=== PATIENT | female | born 1990 | race Caucasian/White ===

== ENCOUNTER 2018-11-13 22:27 | Emergency (ER) | payer OTHER ==
[2018-11-13] MEDS ORDERED: Ondansetron PF 4 MG/2 ML Vial ONE (23:36)
[2018-11-14 00:02] LABS: Bacteria/HPF 1+ HPF (None Seen); Bilirubin Negative (Negative); Blood, Urine Negative (Negative); Clarity Turbid (Clear); Glucose, Urine (Dipstick) Normal (Negative); Leukocyte Negative Leu/uL (Negative); Nitrite Negative (Negative); Protein, Urine (Dipstick) 50 mg/dL (Neg-Trace); RBC/HPF None Seen HPF (0-3); WBC/HPF 0-3 HPF (0-3)
[2018-11-14 00:10] LABS: #Eosinphils 0.2 thou/uL (0.0-0.7); #Lymphocytes 2.4 thou/uL (1.20-3.40); #Monocytes 0.9 thou/uL (0.11-0.59); #Neutrophils 7.7 thou/uL (1.40-6.50); %Basophils 0.3 % (0.0-1.0); %Eosinophils 1.6 % (0.0-10.0); %Lymphocytes 21.8 % (21.0-51.0); %Monocytes 7.6 % (0.0-10.0); %Neutrophils 68.8 % (42.0-75.0); Hemoglobin 13.7 g/dL (12.0-16.0); Mean Corpuscular Hemoglobin 27.8 pg (27.0-31.0); Mean Corpuscular Volume 81.9 fL (78.0-98.0); Mean Platelet Volume 7.3 fL (7.4-10.4); Platelet Count 278 thou/uL (130-400); RBC Distribution Width 13.2 % (11.5-14.5); Red Blood Cell (RBC) Count 4.92 mill/uL (4.20-5.40); White Blood Cell (WBC) Count 11.2 thou/uL (4.8-10.8)
[2018-11-14 00:12] LABS: ALT (SGPT) 31 U/L (8-55); AST (SGOT) 40 U/L (5-34); Albumin 4.3 g/dL (3.5-5.0); Alkaline Phosphatase 61 U/L (40-150); Anion Gap 16 mmol/L (10-20); BUN (Urea Nitrogen) 12 mg/dL (7.0-18.7); Bilirubin, Total 0.6 mg/dL (0.2-1.2); Calc. Creatinine Clearance 0 mL/min (70-130); Calcium 9.1 mg/dL (7.8-10.44); Carbon Dioxide 19 mmol/L (22-29); Chloride 103 mmol/L (98-107); Estimated GFR-MDRD Greater than 90; Globulin 2.4 g/dL (2.4-3.5); Glucose 85 mg/dL (70-105); Potassium 3.6 mmol/L (3.5-5.1); Protein, Total 6.7 g/dL (6.0-8.3); Sodium 134 mmol/L (136-145)
== END 2018-11-14 01:03 | disposition home or self-care (01) ==
LOC: ERS 22:27
DX: O21.9 Vomiting of pregnancy, unspecified (principal); Z3A.01 Less than 8 weeks gestation of pregnancy
CPT/HCPCS: 80053; 81003; 81015; 85025; 96361; 96374; J2405

== ENCOUNTER 2018-11-23 19:15 | Emergency (ER) | payer OTHER ==
[2018-11-23] MEDS ORDERED: Ondansetron ODT 4 MG TAB ONE (19:53)
[2018-11-23 20:11] LABS: Bilirubin Large (Negative); Blood, Urine Moderate (Negative); Glucose, Urine (Dipstick) Negative (Negative); Leukocyte Negative (Negative); Nitrite Negative (Negative); Protein, Urine (Dipstick) 100 mg/dL (Neg-Trace)
[2018-11-23 20:11] LABS: #Eosinphils 0.1 thou/uL (0.0-0.7); #Lymphocytes 1.8 thou/uL (1.20-3.40); #Monocytes 0.8 thou/uL (0.11-0.59); #Neutrophils 11.8 thou/uL (1.40-6.50); %Basophils 0.3 % (0.0-1.0); %Eosinophils 0.6 % (0.0-10.0); %Lymphocytes 12.4 % (21.0-51.0); %Monocytes 5.4 % (0.0-10.0); %Neutrophils 81.4 % (42.0-75.0); Mean Corpuscular HGB CONC 32.1 g/dL (32.0-36.0); Mean Corpuscular Hemoglobin 26.6 pg (27.0-31.0); Mean Corpuscular Volume 82.8 fL (78.0-98.0); Mean Platelet Volume 6.7 fL (7.4-10.4); Platelet Count 334 thou/uL (130-400); RBC Distribution Width 13.5 % (11.5-14.5); Red Blood Cell (RBC) Count 5.63 mill/uL (4.20-5.40); White Blood Cell (WBC) Count 14.4 thou/uL (4.8-10.8)
[2018-11-23 20:15] LABS: Clarity Hazy (Clear)
[2018-11-23 20:18] LABS: RBC/HPF 0-3 HPF (0-3)
[2018-11-23 20:19] LABS: Bacteria/HPF 2+ HPF (None Seen)
[2018-11-23 20:20] LABS: Mucous/LPF 2+ LPF (<2+)
[2018-11-23 20:32] LABS: ALT (SGPT) 82 U/L (8-55); AST (SGOT) 51 U/L (5-34); Alkaline Phosphatase 73 U/L (40-150); Anion Gap 16 mmol/L (10-20); BUN (Urea Nitrogen) 12 mg/dL (7.0-18.7); Bilirubin, Total 0.8 mg/dL (0.2-1.2); Calc. Creatinine Clearance 0 mL/min (70-130); Calcium 10.2 mg/dL (7.8-10.44); Carbon Dioxide 22 mmol/L (22-29); Chloride 102 mmol/L (98-107); Estimated GFR-MDRD Greater than 90; Globulin 2.6 g/dL (2.4-3.5); Glucose 90 mg/dL (70-105); Potassium 3.9 mmol/L (3.5-5.1); Protein, Total 7.6 g/dL (6.0-8.3); Sodium 136 mmol/L (136-145)
[2018-11-23] MEDS ORDERED: Ondansetron PF 4 MG/2 ML Vial ONE (21:51)
== END 2018-11-23 23:33 | disposition home or self-care (01) ==
LOC: ERS 19:15
DX: O21.0 Mild hyperemesis gravidarum (principal); Z3A.01 Less than 8 weeks gestation of pregnancy; Z79.899 Other long term (current) drug therapy
CPT/HCPCS: 36415; 80053; 81003; 81015; 85025; 96361; 96374; J2405; Q0162

== ENCOUNTER 2018-11-26 15:02 | Inpatient (IN) | payer OTHER ==
[2018-11-26 16:47] LABS: #Basophils 0.1 thou/uL (0.0-0.2); #Lymphocytes 1.4 thou/uL (1.20-3.40); #Monocytes 0.7 thou/uL (0.11-0.59); #Neutrophils 10.5 thou/uL (1.40-6.50); %Basophils 0.5 % (0.0-1.0); %Eosinophils 0.4 % (0.0-10.0); %Lymphocytes 11.2 % (21.0-51.0); %Monocytes 5.8 % (0.0-10.0); %Neutrophils 82.2 % (42.0-75.0); Hemoglobin 14.7 g/dL (12.0-16.0); Mean Corpuscular HGB CONC 33.4 g/dL (32.0-36.0); Mean Corpuscular Hemoglobin 27.2 pg (27.0-31.0); Mean Corpuscular Volume 81.4 fL (78.0-98.0); Mean Platelet Volume 6.9 fL (7.4-10.4); Platelet Count 286 thou/uL (130-400); RBC Distribution Width 13.4 % (11.5-14.5); Red Blood Cell (RBC) Count 5.42 mill/uL (4.20-5.40); White Blood Cell (WBC) Count 12.8 thou/uL (4.8-10.8)
[2018-11-26] MEDS ORDERED: Ondansetron PF 4 MG/2 ML Vial ONE (16:57)
[2018-11-26 17:08] LABS: ALT (SGPT) 187 U/L (8-55); AST (SGOT) 92 U/L (5-34); Albumin 4.9 g/dL (3.5-5.0); Alkaline Phosphatase 75 U/L (40-150); Anion Gap 16 mmol/L (10-20); BUN (Urea Nitrogen) 8 mg/dL (7.0-18.7); Bilirubin, Total 1.1 mg/dL (0.2-1.2); Calc. Creatinine Clearance 0 mL/min (70-130); Calcium 10.4 mg/dL (7.8-10.44); Carbon Dioxide 20 mmol/L (22-29); Chloride 103 mmol/L (98-107); Estimated GFR-MDRD Greater than 90; Globulin 2.7 g/dL (2.4-3.5); Glucose 81 mg/dL (70-105); Potassium 4.6 mmol/L (3.5-5.1); Protein, Total 7.6 g/dL (6.0-8.3); Sodium 134 mmol/L (136-145)
[2018-11-26 17:43] LABS: Bacteria/HPF None Seen HPF (None Seen); Bilirubin Negative (Negative); Blood, Urine Trace (Negative); Clarity Clear (Clear); Glucose, Urine (Dipstick) 50 mg/dL (Negative); Leukocyte Negative Leu/uL (Negative); Nitrite Negative (Negative); Protein, Urine (Dipstick) 100 mg/dL (Neg-Trace); RBC/HPF 0-3 HPF (0-3); Urobilinogen 3 mg/dL (Less than 2)
[2018-11-26] MEDS ORDERED: Promethazine HCl 25 MG/ML VIAL ONE (19:19)
--- NOTE | 2018-11-26 20:38 | HP ---
TIME OF ADMISSION: 1935 hours. REASON FOR ADMISSION: Hyperemesis gravidarum at 6 to 8 weeks' gestation. HISTORY OF PRESENT ILLNESS: Ms. Pagan is a 28-year-old, 10, para 2, AB 7, who was just moved to the area from [place]. She reports she has had hyperemesis with one of her previous pregnancies. She reports three weeks of severe nausea and vomiting, really not being able to keep much of anything down, and approximately 15 to 20-pound weight loss. She has failed outpatient therapy on both the and 23 of November at [facility] Emergency rooms. She denies bleeding. She denies syncope. She denies loss of consciousness. 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 x2. The patient reports that she has not had a workup for recurrent miscarriage. MEDICAL HISTORY: The patient denies significant medical history. SURGICAL HISTORY: Tonsils and adenoids. ALLERGIES: DENIES. MEDICATIONS: vitamins. SOCIAL HISTORY: Denies tobacco, alcohol, or IV drug abuse. FAMILY HISTORY: Noncontributory. REVIEW OF SYSTEMS: Noncontributory. PHYSICAL EXAMINATION: GENERAL: A white female, looking dehydrated and pale. VITAL SIGNS: Temperature is 98.8, respirations 18, pulse is 98, blood pressure was 108/72. HEENT: Within normal limits. LUNGS: Clear to auscultation bilaterally. HEART: Regular rate and rhythm. ABDOMEN: Soft and nontender without rebound or guarding. NEUROLOGIC: She had no CVA tenderness. EXTREMITIES: Without clubbing, cyanosis, or edema. PELVIC: Deferred. LABORATORY DATA: The patient's white count is 12.8. Hematocrit 44%, up from 40% on 11/13. Platelet counts within normal limits. Sodium stable from previous visit at 134, potassium has actually improved to 4.6, creatinine is within normal limits. Of interest, the patient's AST has increased from 40 to 92, and ALT from 31 to 187. Urinalysis reveals a specific gravity of 1.03, 2+ urine protein, and large urine ketones. No ultrasound has been performed at this institution during this . IMPRESSION: 1. Clinical criteria for severe hyperemesis gravidarum, reached at approximately 6 to 8 weeks gestation by LMP. 2. Unexplained elevation of LFTs, but likely transient secondary to dehydration. 3. History of recurrent loss. PLAN: 1. Admission. 2. IV fluids. 3. Antiemetic therapy with Phenergan, Zofran, Reglan, and Solu-Cortef. 4. Ultrasound. 5. Blood type and Rh. 6. Check quant HCG. Job ID: [id number]
[2018-11-26] MEDS ORDERED: Ondansetron PF 4 MG/2 ML Vial IVP PRN (21:57)
[2018-11-26] MEDS ORDERED: Famotidine/PF 20 mg/2ml Vial SLOW IVP SCH (22:15)
[2018-11-26] MEDS ORDERED: Sodium Chloride 0.9% 10 ML ONE (22:25)
[2018-11-26] MEDS: Lactated Ringer's 1,000 ML IV SCH (22:26)
[2018-11-26] MEDS: Hydrocortisone Sod Succ/PF 100 mg/2 ml Vial IVP SCH (22:31)
[2018-11-26] MEDS: Metoclopramide HCl 10 MG/2 ML VIAL IVP SCH (22:31)
[2018-11-27 00:38] LABS: Bacteria/HPF None Seen HPF (None Seen); Bilirubin Negative (Negative); Blood, Urine Negative (Negative); Clarity Turbid (Clear); Glucose, Urine (Dipstick) Normal (Negative); Leukocyte Negative Leu/uL (Negative); Mucous/LPF 4+ LPF (<2+); Nitrite Negative (Negative); Protein, Urine (Dipstick) 20 mg/dL (Neg-Trace); RBC/HPF 0-3 HPF (0-3)
[2018-11-27 00:39] LABS: Urine Culture Reflex No No
[2018-11-27] MEDS: Lactated Ringer's 1,000 ML IV SCH ×2 (05:04→05:44)
[2018-11-27] MEDS: Metoclopramide HCl 10 MG/2 ML VIAL IVP SCH ×3 (05:43→21:20)
[2018-11-27] MEDS: Hydrocortisone Sod Succ/PF 100 mg/2 ml Vial IVP SCH ×3 (05:44→21:19)
[2018-11-27 05:45] LABS: ALT (SGPT) 131 U/L (8-55); AST (SGOT) 56 U/L (5-34); Albumin 3.9 g/dL (3.5-5.0); Alkaline Phosphatase 62 U/L (40-150); Anion Gap 14 mmol/L (10-20); BUN (Urea Nitrogen) 4 mg/dL (7.0-18.7); Bilirubin, Total 0.9 mg/dL (0.2-1.2); Calc. Creatinine Clearance 221 mL/min (70-130); Carbon Dioxide 17 mmol/L (22-29); Chloride 106 mmol/L (98-107); Estimated GFR-MDRD Greater than 90; Glucose 87 mg/dL (70-105); Potassium 3.6 mmol/L (3.5-5.1); Protein, Total 5.9 g/dL (6.0-8.3); Sodium 133 mmol/L (136-145)
--- NOTE | 2018-11-27 07:01 | PRG ---
DATE OF SERVICE: 11/27/2018 TIME OF SERVICE: 0640 hours. SUBJECTIVE: The patient is resting comfortably. She states that her nausea is significantly improved. She has had no emesis on the floor. OBJECTIVE: VITAL SIGNS: Temperature 97.6, pulse 69, respirations 18, pulse ox 100 percent on room air, blood pressure 106/58. LABORATORY DATA: A.M. basic metabolic panel reveals a sodium of 133, potassium of 3.6. ALT is decreased from 187 to 131, AST from 92 to 56. PHYSICAL EXAMINATION: GENERAL: White female, resting comfortably. LUNGS: Clear to auscultation bilaterally. HEART: Regular rate and rhythm. ABDOMEN: Soft and nontender without rebound or guarding. EXTREMITIES: Without clubbing, cyanosis, or edema. IMPRESSION: Hyperemesis gravidarum, improving on Zofran, Phenergan, Reglan, Solu-Cortef with lowered potassium and mild hyponatremia. PLAN: 1. Continue IV fluids. We will add 20 mEq KCl per L. 2. Continue medications, today. 3. We will check outpatient to Dr. Pradeep Mandel, OB hospitalist, on- call today. Job ID: [id number]
[2018-11-27] MEDS: Potassium Chloride 20 MEQ in Lactated Ringer's 1,000 ML IV SCH ×2 (08:06→18:11)
[2018-11-27] MEDS ORDERED: Doxylamine 25 MG TAB PO PRN (08:47)
[2018-11-27] MEDS: Famotidine/PF 20 mg/2ml Vial SLOW IVP SCH ×2 (09:56→21:20)
[2018-11-27] MEDS: pyridOXINE 50 MG (B6) TAB PO SCH ×2 (09:57→21:18)
[2018-11-27] MEDS: Doxylamine 25 MG TAB PO SCH ×2 (09:57→21:19)
--- NOTE | 2018-11-27 11:26 | ULT ---
FIRST TRIMESTER OBSTETRIC ULTRASOUND: INDICATIONS: History of 8-week with hyperemesis. FINDINGS: There is a single live intrauterine gestation with a yolk sac and a pole identified. The pole measures 1.7 cm, giving an estimated gestational age of 8 weeks 2 days. Mean sac diameter is 5 .06 cm, giving an estimated gestational age of 10 weeks 6 days. Yolk sac is seen, measuring 2.9 mm. Cardiac activity is noted at 168 beats per minute. No subchorionic hemorrhage is evident. No free fluid is identified. The visualized right and left ovary demonstrate normal vascular flow and sonogr aphic appearance. The right ovary measures 3.5 x 2.6 cm. The left ovary measures 2.9 x 3.9 cm. No free fluid is identified. IMPRESSION: Single live intrauterine gestation with size and dates as above. POS: TPC
[2018-11-27 14:41] VITALS: BMI 34.7
[2018-11-27] MEDS ORDERED: Ondansetron ODT 8 MG TAB PO PRN (23:42)
--- NOTE | 2018-11-27 23:45 | PDOC.EVN ---
Event Note - Event Note Event Note: Pt has not vomitted today. Has tolerated clear liquid diet. Still not much appetite. MEds have been changed to PO. zofran 8mg bid, reglan 10mg before meals. doxylamine 12.5mg bid , Vit B6 bid 25mg, pepcid 20mg bid
[2018-11-28] MEDS: Potassium Chloride 20 MEQ in Lactated Ringer's 1,000 ML IV SCH ×2 (04:37→14:47)
[2018-11-28] MEDS: Hydrocortisone Sod Succ/PF 100 mg/2 ml Vial IVP SCH ×2 (05:54→14:47)
[2018-11-28] MEDS: Metoclopramide HCl 10 MG TAB PO SCH ×3 (08:08→14:47)
[2018-11-28] MEDS: Doxylamine 25 MG TAB PO SCH (08:08)
[2018-11-28] MEDS: pyridOXINE 50 MG (B6) TAB PO SCH (08:09)
--- NOTE | 2018-11-28 08:48 | PRG ---
DATE OF SERVICE: 11/28/2018 SUBJECTIVE: The patient is a 28-year-old female, now hospital day 3 for hyperemesis gravidarum. The patient has an intrauterine at approximately 8 weeks gestation. She has been placed on scheduled Solu-Cortef, Zofran, Reglan, and Pepcid. She has had no vomiting episodes since yesterday morning. I have converted her IV medications all to oral today for a trial. OBJECTIVE: VITAL SIGNS: This morning, blood pressure is 120/70, temperature 98.0, pulse 60, respiratory rate of 18. GENERAL: She appears to be in no acute distress. She is alert, oriented, cooperative, and pleasant to interact with. Plan today is trial of p.o. and see how well she tolerates it. If she does well today on her oral regimen, the patient can be discharged likely later today. Dr. Blevins can re-evaluate this evening. Heart tones were 168 by ultrasound on admission. Dr. Blevins is the oncoming physician, who will be reassessing this afternoon for possible discharge. Job ID: [id number]
[2018-11-28] MEDS ORDERED: Famotidine 20 MG TAB PO SCH (09:00)
[2018-11-28 12:15] VITALS: BP 118/59; TEMP 97.6
--- NOTE | 2018-11-29 00:42 | DIS ---
DATE OF ADMISSION: 11/26/2018 DATE OF DISCHARGE: 11/28/2018 DIAGNOSES: 1. Hyperemesis gravidarum. 2. An 8-week 2-day intrauterine . HOSPITAL COURSE: The patient was admitted on 11/26/2018 for hyperemesis. She was started on Zofran, Reglan, Pepcid, Phenergan, and Solu-Cortef along with IV fluids. On hospital day 2, she was able to tolerate p.o. and was ready for discharge home, and was discharged home on the same medications with the exception of the Solu-Cortef which was discontinued. DISCHARGE MEDICATIONS: 1. Reglan. 2. Zofran ODT. 3. Pepcid. 4. Diclegis. DIET: As tolerated. ACTIVITIES: As tolerated. FOLLOWUP: Follow up with Dr. Pbaon tomorrow as scheduled. Job ID: [id number]
== END 2018-11-28 18:22 | disposition home or self-care (01) | DRG 832 ==
LOC: ERS 15:02 → 3SW 21:56
PROVIDERS: ADMIT Emergency Medicine; ATTEND Emergency Medicine
DX: O21.1 Hyperemesis gravidarum with metabolic disturbance (principal); E87.1 Hypo-osmolality and hyponatremia; Z3A.08 8 weeks gestation of pregnancy; E86.0 Dehydration; O99.281 Endocrine, nutritional and metabolic diseases complicating pregnancy, first trimester
CPT/HCPCS: 36415; 76856; 80053; 81001; 81003; 81015; 84702; 85025; 86900; 86901; 93976; 96361; 96365; 96374; 96375; J1720; J2405; J2550; J2765; J3480; J7120; J8597; Q0162; S0028

== ENCOUNTER 2018-12-02 12:05 | Inpatient (IN) | payer OTHER ==
[2018-12-02 12:29] LABS: Bacteria/HPF None Seen HPF (None Seen); Bilirubin 1+ (Negative); Blood, Urine Trace (Negative); Clarity Turbid (Clear); Glucose, Urine (Dipstick) Normal (Negative); Leukocyte Negative Leu/uL (Negative); Nitrite Negative (Negative); Protein, Urine (Dipstick) 100 mg/dL (Neg-Trace); Urobilinogen 6 mg/dL (Less than 2)
[2018-12-02] MEDS ORDERED: Metoclopramide HCl 10 MG/2 ML VIAL ONE (12:42)
[2018-12-02] MEDS ORDERED: Pantoprazole 40 MG VIAL ONE (12:42)
[2018-12-02] MEDS ORDERED: diphenhydrAMINE 50 MG/ML VIAL ONE (12:42)
[2018-12-02 13:17] LABS: ALT (SGPT) 244 U/L (8-55); AST (SGOT) 149 U/L (5-34); Albumin 4.9 g/dL (3.5-5.0); Alkaline Phosphatase 84 U/L (40-150); Anion Gap 16 mmol/L (10-20); BUN (Urea Nitrogen) 9 mg/dL (7.0-18.7); Bilirubin, Total 1.5 mg/dL (0.2-1.2); Calc. Creatinine Clearance 0 mL/min (70-130); Calcium 10.5 mg/dL (7.8-10.44); Carbon Dioxide 21 mmol/L (22-29); Chloride 100 mmol/L (98-107); Estimated GFR-MDRD Greater than 90; Globulin 2.9 g/dL (2.4-3.5); Glucose 111 mg/dL (70-105); Potassium 3.1 mmol/L (3.5-5.1); Protein, Total 7.8 g/dL (6.0-8.3); Sodium 134 mmol/L (136-145)
[2018-12-02 13:58] LABS: #Eosinphils 0.1 thou/uL (0.0-0.7); #Lymphocytes 1.4 thou/uL (1.20-3.40); #Monocytes 0.8 thou/uL (0.11-0.59); #Neutrophils 11.8 thou/uL (1.40-6.50); %Basophils 0.3 % (0.0-1.0); %Eosinophils 0.4 % (0.0-10.0); %Monocytes 5.8 % (0.0-10.0); %Neutrophils 83.5 % (42.0-75.0); Hemoglobin 15.3 g/dL (12.0-16.0); Mean Corpuscular HGB CONC 32.6 g/dL (32.0-36.0); Mean Corpuscular Hemoglobin 26.6 pg (27.0-31.0); Mean Corpuscular Volume 81.7 fL (78.0-98.0); Mean Platelet Volume 7.5 fL (7.4-10.4); Platelet Count 348 thou/uL (130-400); RBC Distribution Width 13.9 % (11.5-14.5); Red Blood Cell (RBC) Count 5.74 mill/uL (4.20-5.40); White Blood Cell (WBC) Count 14.2 thou/uL (4.8-10.8)
[2018-12-02] MEDS ORDERED: predniSONE 20 MG TAB ONE (14:54)
[2018-12-02] MEDS ORDERED: Ondansetron PF 4 MG/2 ML Vial ONE (14:54)
[2018-12-02] MEDS ORDERED: Calcium Carbonate 500 MG ChewTAB PO PRN (15:27)
[2018-12-02] MEDS ORDERED: Acetaminophen 325 MG TAB PO PRN (15:27)
[2018-12-02] MEDS ORDERED: Ondansetron ODT 4 MG TAB PO PRN (15:27)
[2018-12-02] MEDS: Potassium Chloride 40 MEQ in Sodium Chloride 0.9% 500 ML IVPB SCH ×2 (17:00→22:12)
[2018-12-02] MEDS: Ondansetron PF 4 MG/2 ML Vial IVP PRN (20:52)
[2018-12-02] MEDS: Famotidine/PF 20 mg/2ml Vial SLOW IVP SCH (20:59)
[2018-12-02] MEDS: Famotidine 20 MG TAB PO SCH (21:34)
[2018-12-02] MEDS: Metoclopramide HCl 10 MG/2 ML VIAL IVP SCH (22:13)
[2018-12-02] MEDS: methylPREDNISolone Sod Succ 40 MG VIAL IVP SCH (22:34)
--- NOTE | 2018-12-02 23:47 | HP ---
CHIEF COMPLAINT: Nausea, vomiting. HISTORY OF PRESENT ILLNESS: This is a 28-year-old G10, P2, AB7, who was recently discharged from the hospital after admission for hyperemesis gravidarum. She returned to the emergency room today with recurrence of her nausea and vomiting and inability to tolerate p.o. She essentially failed outpatient therapy on Diclegis, Zofran, Reglan, and pepcid. She has mild cramping and occasional spotting, but no other significant complaints. REVIEW OF SYSTEMS: Negative for head, eyes, ears, nose, and throat, cardiovascular, respiratory, GI, , neuro, psych, musculoskeletal, skin, or constitutional symptoms other than mentioned above. PAST MEDICAL HISTORY: None. PAST SURGICAL HISTORY: Tonsils and adenoids. ALLERGIES: NO KNOWN DRUG ALLERGIES. MEDICATIONS: vitamins and medications listed above. SOCIAL HISTORY: Negative for tobacco, alcohol, or drug abuse. FAMILY HISTORY: Noncontributory. 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 No history of D and C, and has not had a workup for recurrent miscarriage. PHYSICAL EXAMINATION: VITAL SIGNS: Blood pressure 113/68, pulse 73, respiratory rate 20, temperature 98.3. GENERAL: Awake, alert, no acute distress. CHEST: Nonlabored breathing. ABDOMEN: Soft, nontender to palpation. PELVIC: Deferred. LABORATORY DATA: WBC 14.2, hemoglobin 15.3, hematocrit 46.9, platelets 348,000. Chemistry; potassium 3.1, AST 149, ALT 244. ASSESSMENT AND PLAN: A 28-year-old, G10, P2-0-7-2 with: 1. Hyperemesis gravidarum. We will admit the patient for IV hydration. She will receive scheduled Reglan, Zofran, Pepcid, and Solu-Medrol. 2. Hypokalemia, 40 mEq of KCl x2 doses will be ordered with repeat CMP in the morning. 3. Elevated liver enzymes. These appear to be rising compared to her previous visits, so I will order an acute hepatitis panel. Dr. Pabon will be taking over care tomorrow. Job ID: [id number] [facility]
[2018-12-03] MEDS: Ondansetron PF 4 MG/2 ML Vial IVP PRN ×2 (03:00→20:01)
[2018-12-03] MEDS: Multivitamins, Adult 10 ML, Folic Acid 1 MG, Thiamine HCl 100 MG in Dextrose 5 %-0.45 %... IV SCH (03:19)
[2018-12-03] MEDS: Metoclopramide HCl 10 MG/2 ML VIAL IVP SCH ×3 (06:03→22:43)
[2018-12-03] MEDS: methylPREDNISolone Sod Succ 40 MG VIAL IVP SCH ×3 (06:17→22:37)
[2018-12-03 06:18] LABS: ALT (SGPT) 241 U/L (8-55); AST (SGOT) 134 U/L (5-34); Albumin 3.9 g/dL (3.5-5.0); Alkaline Phosphatase 65 U/L (40-150); Anion Gap 9 mmol/L (10-20); BUN (Urea Nitrogen) 5 mg/dL (7.0-18.7); Calc. Creatinine Clearance 0 mL/min (70-130); Calcium 8.9 mg/dL (7.8-10.44); Carbon Dioxide 20 mmol/L (22-29); Chloride 105 mmol/L (98-107); Estimated GFR-MDRD Greater than 90; Glucose 151 mg/dL (70-105); Potassium 3.7 mmol/L (3.5-5.1); Protein, Total 5.9 g/dL (6.0-8.3); Sodium 130 mmol/L (136-145)
[2018-12-03 06:32] LABS: HBCM Index 0.07 S/CO (0-0.79); HBSAg Index 0.26 S/CO (0-0.99); Hep A IgM AB Non-Reactive (NonReactive); Hep A IgM S/CO 0.12 S/CO (0-0.79); Hep B Surf Ag Non-Reactive S/CO (NonReactive); Hep C IgG Ab Non-Reactive (NonReactive); Hep C Index 0.06 S/CO (0-0.79); Hepatitis B Core IgM Abs Non-Reactive (NonReactive)
[2018-12-03] MEDS: Sodium Chloride 0.9% 1,000 ML IV SCH ×4 (07:43→20:01)
[2018-12-03] MEDS: Famotidine 20 MG TAB PO SCH ×2 (07:44→22:17)
[2018-12-03] MEDS: Famotidine/PF 20 mg/2ml Vial SLOW IVP SCH ×2 (09:14→21:41)
[2018-12-03 16:06] VITALS: BMI 33.5
--- NOTE | 2018-12-03 22:36 | PDOC.EVN ---
Event Note - Event Note Event Note: HPI 28 yo at 9 and 3/7 weeks, with EDC of 07/05/19, who presented to the ER today for recurrent bout with hyperemesis Gravidarum, now worse than at previous discharge last week. REVIEW OF SYSTEMS: Gen: no fever, chills, or sweats. Neuro: no numbness/tingling, no weakness, no intermittent headache Eyes: no current visual changes ENT: no hearing changes, no sore throat, no runny nose Resp: no cough, no SOB, no wheeze Card: no chest pain, no palpitations GI: no abdominal pain. (+) N/V. No diarrhea : no dysuria, no hematuria, no vaginal DC MSK: no issues noted Heme: no easy bruising/bleeding Skin: no rash, no erythema Medical Hx: Obesity Surgical Hx: None Social Hx: No T/E/D Family Hx: Non-Contributory Allergies: NKDA Medications: Vitamins PHYSICAL EXAMINATION: General: NAD, alert and oriented x3 HEENT: PERRLA, EOMI, normal sclera, oropharynx without erythema or exudate Neck: Supple. Full ROM. Heart/Cardiovascular System: RRR, Cap refill < 3 seconds, no rub, no murmur Lungs/Respiratory System: clear to auscultation bilaterally. No increased work of breathing. Room air. Abdomen/Gastro-Intestinal System: no abdominal tenderness, normal bowel sounds, Gravid Pelvic Exam: Deferred Extremeties: Warm extremities. No cyanosis, No edema Neuro: No gross deficits appreciated. CN 2-12 grossly intact Psychiatry: Awake, Alert and cooperative with exam Skin/ Integumentory: No lesions, rashes, or ulcers Musculoskeletal: Full ROM A/P: Assessment: 1. IUP at 9 weeks 2. Severe Hyperemesis Gravidarum 3. Patient has improved since admission. Plan: 1. Continue in-patient management of Hyperemesis (antiemetics, IV Fluids).
[2018-12-04] MEDS ORDERED: Multivitamins, Adult 10 ML, Folic Acid 1 MG, Thiamine HCl 100 MG in Dextrose 5 %-0.45 %... IV SCH (04:00)
[2018-12-04] MEDS: methylPREDNISolone Sod Succ 40 MG VIAL IVP SCH ×2 (06:13→14:36)
[2018-12-04] MEDS: Metoclopramide HCl 10 MG/2 ML VIAL IVP SCH ×2 (06:20→14:37)
[2018-12-04] MEDS: Ondansetron PF 4 MG/2 ML Vial IVP PRN (06:29)
[2018-12-04] MEDS: Multivitamins, Adult 10 ML, Folic Acid 1 MG, Thiamine HCl 100 MG in Dextrose 5 %-0.45 %... IV SCH (06:36)
[2018-12-04] MEDS: Sodium Chloride 0.9% 1,000 ML IV SCH (08:56)
[2018-12-04] MEDS: Famotidine 20 MG TAB PO SCH (09:14)
[2018-12-04] MEDS: Famotidine/PF 20 mg/2ml Vial SLOW IVP SCH (10:37)
[2018-12-04 11:47] VITALS: BP 106/60; TEMP 97.9
--- NOTE | 2018-12-04 13:40 | PDOC.EVN ---
Event Note - Event Note Event Note: 28 yo at 9 and 4/7 weeks, with EDC of 07/05/19, who presented to the ER for recurrent bout with hyperemesis Gravidarum, now worse than at previous discharge last week. REVIEW OF SYSTEMS: Gen: no fever, chills, or sweats. Neuro: no numbness/tingling, no weakness, no intermittent headache Eyes: no current visual changes ENT: no hearing changes, no sore throat, no runny nose Resp: no cough, no SOB, no wheeze Card: no chest pain, no palpitations GI: no abdominal pain. (+) N/V. No diarrhea : no dysuria, no hematuria, no vaginal DC MSK: no issues noted Heme: no easy bruising/bleeding Skin: no rash, no erythema PHYSICAL EXAMINATION: General: NAD, alert and oriented x3 HEENT: PERRLA, EOMI, normal sclera, oropharynx without erythema or exudate Neck: Supple. Full ROM. Heart/Cardiovascular System: RRR, Cap refill < 3 seconds, no rub, no murmur Lungs/Respiratory System: clear to auscultation bilaterally. No increased work of breathing. Room air. Abdomen/Gastro-Intestinal System: no abdominal tenderness, normal bowel sounds, Gravid Pelvic Exam: Deferred Extremeties: Warm extremities. No cyanosis, No edema Neuro: No gross deficits appreciated. CN 2-12 grossly intact Psychiatry: Awake, Alert and cooperative with exam Skin/ Integumentory: No lesions, rashes, or ulcers Musculoskeletal: Full ROM A/P: Assessment: 1. IUP at 9 weeks 4 days 2. Severe Hyperemesis Gravidarum - now improved, tolerating most PO intake. 3. Patient has improved since admission. Plan: 1. Today, we will DC IV Fluids, and attempt PO intake. If successful, will DC to home later today,
[2018-12-04] MEDS ORDERED: Sodium Chloride 0.9% 10 ML ONE (14:33)
== END 2018-12-04 16:35 | disposition home or self-care (01) | DRG 833 ==
LOC: ERS 12:05 → 3SW 15:26
PROVIDERS: ADMIT Obstetrics & Gynecology; ATTEND Obstetrics & Gynecology
DX: O21.1 Hyperemesis gravidarum with metabolic disturbance (principal); O99.281 Endocrine, nutritional and metabolic diseases complicating pregnancy, first trimester; O99.211 Obesity complicating pregnancy, first trimester; E66.9 Obesity, unspecified; Z3A.09 9 weeks gestation of pregnancy
CPT/HCPCS: 36415; 80053; 80074; 81003; 81015; 82550; 84702; 85025; 94760; 96361; 96374; 96375; C9113; J1200; J2405; J2765; J2920; J3411; J3480; J7042; J7050; J7512; S0028